=== PATIENT | male | born 1970 | race Caucasian/White ===

== ENCOUNTER 2025-02-07 19:25 | Emergency (ER) | payer OTHER, SELFPAY ==
--- NOTE | ~2025-02-07 | XR_ITS ---
EXAMINATION: XR chest 1V portable 02/07/2025 20:10 INDICATION: Shortness of breath TECHNIQUE:A single portable AP upright frontal image of the chest was obtained. COMPARISON: None available FINDINGS: Left-sided generator with leads. Interstitial opacities in both lungs. The cardiomediastinal silhouette is within normal limits. There are no pleural effusions. There is no pneumothorax suspected. IMPRESSION: 1: Interstitial opacities in both lungs. Differential includes interstitial edema, interstitial pneumonia or chronic interstitial changes. 2. Lungs are hyperinflated. Reviewed, dictated and finalized at location Q. IMPRESSION: 1: Interstitial opacities in both lungs. Differential includes interstitial jessi ma, interstitial pneumonia or chronic interstitial changes. 2. Lungs are hyperinflated.
[2025-02-07 19:20] VITALS: PULSE 127; RESP 24; O2SAT 99
[2025-02-07 19:29] VITALS: BP 141/99; PULSE 127; RESP 23; TEMP 37.2; O2SAT 100
--- NOTE | 2025-02-07 19:29 | ECG_ITS ---
Test Date: 2025-02-07 19:46:48 Measurements Intervals [place] Rate: 124 P: 69 MO: 184 QRS: 36 QRSD: 119 T: 65 QT: 330 QTc: 475 Interpretive Statements SINUS TACHYCARDIA WITH FREQUENT VENTRICULAR PREMATURE COMPLEXES INCOMPLETE RIGHT BUNDLE BRANCH BLOCK [90+ ms QRS DURATION, TERMINAL R IN V1/V2, 40+ ms S IN I/aVL/V4/V5/V6] ANTEROSEPTAL MYOCARDIAL INFARCTION , OF INDETERMINATE AGE [40+ ms Q WAVE IN V1-V4] No previous ECG available for comparison Electronically Signed On 02-08-2025 10:30:24 CDT by Gunnar Martinez M.D.
[2025-02-07 19:30] VITALS: PULSE 127; RESP 24
[2025-02-07] MEDS: IPRATROPIUM BR 0.02% INH SOLN 0.5 MG/2.5 ML VIAL 2 MG INHALATION (19:30)
[2025-02-07] MEDS: ALBUTEROL SULFATE NEB 2.5 MG/3 ML INH 10 MG INHALATION (19:30)
[2025-02-07 19:31] VITALS: PULSE 130
--- NOTE | 2025-02-07 19:37 | ED_ITS ---
HPI - General Adult General Chief complaint: Shortness of Breath/Dyspnea Stated complaint: SOB History of Present Illness HPI narrative: Patient is a 54-year-old male who presents emergency department this evening in severe respiratory distress. Per EMS report, patient was found it a [facility] bathroom sitting on the toilet diaphoretic and in severe respiratory distress. Patient was satting 70% on room air. Patient does have a history of COPD and CHF and states that he is supposed to be on oxygen 4 L only did but has not been using it. Patient is also supposed to be on a CPAP at night but has not been using that either. Denies any recent illness, fevers or chills. Denies any active chest pain. Patient states that he feels significantly better after EMS placed him on a CPAP. EMS states that patient himself also looks significantly better. They did administer Decadron and 2 g of IV Mag Prior to arrival. Related Data Allergies Allergy/AdvReac Type Severity Reaction Status Date / Time No Known Allergies Allergy Verified 02/07/25 19:40 Review of Systems 2 Review of Systems: All systems are reviewed and are negative unless stated otherwise in the HPI. Exam 2 Narrative: General: Alert, awake, afebrile, in severe respiratory distress. HEENT: PERRL, no rhinorrhea, no post nasal drip, oropharynx clear. Neck: Trachea midline, no JVD, no lymphadenopathy. Cardiovascular: Regular rate and rhythm, no murmurs, rubs or gallops, no peripheral edema. Respiratory: Severely diminished bilateral breath sounds with audible wheezing, tachypneic, increase work of breathing was use of accessory muscles of respirations, in severe respiratory distress. Abdomen: Soft, nontender, nondistended, no rebound, no guarding, no peritoneal signs. Musculoskeletal: No joint swelling or deformity, normal muscle tone. Skin: No rashes or petechia, no signs of infection. Psychiatric: Alert and oriented, normal behavior and judgment for situation. Neurological: Alert and oriented to person, place, and time. Follows all commands. No focal deficits, speech is clear and fluent. Course Vital Signs Vital signs: Vital Signs Pulse Rate 127 H 02/07/25 19:20 Respiratory Rate 24 H 02/07/25 19:20 Pulse Oximetry 99 02/07/25 19:20 Oxygen Delivery BiPAP 02/07/25 19:20 Temperature 99 F 02/07/25 19:29 Pulse Rate 130 H 02/07/25 19:31 Respiratory Rate 24 H 02/07/25 19:30 Blood Pressure 141/99 H 02/07/25 19:29 Pulse Oximetry 100 02/07/25 19:29 Oxygen Delivery BiPAP 02/07/25 20:05 Medical Decision Making MDM Narrative Medical decision making narrative: The patient was evaluated by myself in the emergency department. History is obtained from patient who is an independent historian and physical exam was performed. External medical records were reviewed at this time. IV was established and pertinent tests were ordered. Patient was administered long DuoNeb breathing treatment. He did receive steroids and 2 g of Mag per EMS prior to arrival. Patient was also started on IV fluids with 1 L IV fluid bolus with normal saline and antibiotics with Rocephin and azithromycin to cover him for sepsis as he did trigger sepsis secondary to his vital signs at this time. Blood cultures were obtained prior to antibiotic administration. EKG was obtained which revealed a sinus tachycardia at a rate of 124 beats per minute with frequent PVCs, incomplete right bundle-branch block, ST depressions noted in the lateral leads, otherwise no evidence of acute ischemia within the limitation of the heart rate. EKG was independently interpreted by me and is currently pending official cardiology read. Laboratory results obtained revealing a leukocytosis of 19.3, PH 7.289, CO2 44.2, PO2 to 80, bicarb 20.7, lactic acidosis of 4, magnesium of 3, proBNP of 1000. Imaging studies obtained included CXR which was independently interpreted by me revealing [finding], which is pending final radiology interpretation. Differential diagnosis considerations include acute hypoxic respiratory failure secondary to CHF exacerbation/pulmonary edema, COPD, acute viral syndrome, infectious process such as pneumonia. Comorbidities impacting this visit include history of COPD and reported CHF. I have evaluated and discussed social determinants of health with the patient that could potentially impact subsequent diagnosis and treatment plans. On repeat assessment of the patient, reevaluation revealed that the patient is doing well and is in no acute distress. Patient symptoms have improved since he arrived to our emergency department. Patient was informed that given his condition, a.m. recommending inpatient hospitalization for treatment and patient is refusing at this time. He is alert and oriented to person, place, time and situation and sound of my, capable of making his own medical decisions. He understands that he will be leaving against medical advice and is willing to sign AMA form. Critical care time of 75 minutes, exclusive of separately performed procedures, necessary for treating or preventing eminent or life-threatening deterioration of patient's condition of acute hypoxic respiratory failure requiring BIPAP and sepsis, focused on patient care provided personally by me and time spent during initial evaluation, physical examination, ordering and performing treatments and interventions, ordering and reviewing laboratory studies, ordering and reviewing radiographic studies, re-evaluation of the patient's condition, evaluation of the patient's response to treatment, and discussion of patient case with multiple consultants. Vital Signs Vital Signs: Vital Signs Pulse Rate 127 H 02/07/25 19:20 Respiratory Rate 24 H 02/07/25 19:20 Pulse Oximetry 99 02/07/25 19:20 Oxygen Delivery BiPAP 02/07/25 19:20 Temperature 99 F 02/07/25 19:29 Pulse Rate 130 H 02/07/25 19:31 Respiratory Rate 24 H 02/07/25 19:30 Blood Pressure 141/99 H 02/07/25 19:29 Pulse Oximetry 100 02/07/25 19:29 Oxygen Delivery BiPAP 02/07/25 20:05 Lab Data 02/07/25 19:48 02/07/25 19:53 Labs: Lab Results 02/07/25 02/07/25 02/07/25 Range/Units 19:48 19:53 20:12 WBC 19.3 H (4.5-10.0) K/mm3 RBC 4.64 (4.6-6.20) M/mm3 Hgb 13.3 L (14.0-18.0) g/dL Hct 43.1 (42.0-52.0) % MCV 92.9 (80-100) fl MCH 28.7 (26-34) pg MCHC 30.9 L (32-36) g/dl RDW 13.4 (11.5-14.5) % Plt Count 260 (150-375) k/mm3 MPV 10.4 (7.4-10.4) fl Immature Gran % (Auto) 1.7 H (0-0.5) % Neut % (Auto) 83.4 H (45.5-73.1) % Lymph % (Auto) 9.5 L (18.3-44.2) % Woods % (Auto) 4.2 (2.6-8.5) % Eos % (Auto) 0.7 (0-4.4) % Baso % (Auto) 0.5 (0.2-1.2) % Lymph # (Auto) 1.84 (0.9-3.2) K/mm3 Woods # (Auto) 0.8 H (0.1-0.6) K/mm3 Eos # (Auto) 0.1 (0-0.3) K/mm3 Baso # (Auto) 0.1 (0.0-0.1) K/mm3 Abs Immat Gran (auto) 0.32 H (0.00-0.031) K/mm3 Absolute Neuts (auto) 16.1 H (1.3-6.7) K/mm3 Absolute Nucleated RBC 0.000 (0.0-0.012) K/mm3 Nucleated RBC % 0.0 (0.0-0.2) % Methemoglobin 0.1 (0-1.5) %THb Expiratory Pressure 5 CMH2O Inspiratory Pressure 12 CMH2O Sodium 136 L (137-145) mmol/L Potassium 4.3 (3.4-5.0) mmol/L Chloride 98 (98-107) mmol/L Carbon Dioxide 25 (22-30) mmol/L Anion Gap 13 H (4-12) mmol/L BUN 12 (9-20) mg/dL Creatinine 1.32 H (0.7-1.3) mg/dL Estim Creat Clear Calc 71 ml/min Estimated GFR 57 L (59 - ) Glucose 159 H (65-110) mg/dL Lactic Acid 4.0 H (0.7-2.0) mmol/L Calcium 8.9 (8.4-10.2) mg/dL Magnesium 3.0 H (1.6-2.3) mg/dL Total Bilirubin 0.5 (0.2-1.3) mg/dL AST 41 (17-59) U/L ALT 29 (6-50) U/L Alkaline Phosphatase 69 (38-126) U/L NT-Pro-B Natriuret Pep 1000 H (19.9-100) pg/mL Total Protein 8.4 H (6.3-8.2) g/dL Albumin 5.0 (3.5-5.1) g/dL ABG Data ABG results: 02/07/25 20:12 Puncture Site Right radial ABG pH 7.289 L* ABG pCO2 44.2 ABG pO2 280.7 H ABG PO2/FiO2 Ratio 5.61 ABG HCO3 20.7 L ABG O2 Saturation 99.6 ABG O2 Content 20.1 ABG Base Excess -5.7 A-a Gradient 26.1 Oxyhemoglobin 99.3 Carboxyhemoglobin 0.4 Reduced Hemoglobin 0.2 Total Hemoglobin 13.9 O2 Delivery Device Non-invasive vent O2 Liters/Min Not Reportable Vent Rate 12 FiO2 50 Critical Care Time Critical Care Time Critical Care Time: Yes Total Critical Care Time: 75 ( Please refer to [facility] for attestation.) Discharge Plan Discharge Clinical Impression: Acute hypoxic respiratory failure, COPD exacerbation, Sepsis, High anion gap metabolic acidosis Patient Disposition: Left Against Medical Advice Condition: Serious Patient Language: Serbian
[2025-02-07] MEDS: SODIUM CHLORIDE 0.9% IV 1,000 ML 999 ML IV CONT (19:44)
[2025-02-07 19:58] LABS: Hematocrit 43.1 % (42.0-52.0); Hemoglobin 13.3 g/dL (14.0-18.0); Immature Granulocyte Percent A 1.7 % (0-0.5); Lymphocytes Absolute Auto 1.84 K/mm3 (0.9-3.2); Mean Corpuscular HGB Conc 30.9 g/dl (32-36); Mean Corpuscular Hemoglobin 28.7 pg (26-34); Mean Corpuscular Volume 92.9 fl (80-100); Nucleated Red Blood Cells Absolute Auto 0.000 K/mm3 (0.0-0.012); Nucleated Red Blood Cells Perc 0.0 % (0.0-0.2); Platelet Count Result 260 k/mm3 (150-375); Red Blood Count 4.64 M/mm3 (4.6-6.20); White Blood Count 19.3 K/mm3 (4.5-10.0)
[2025-02-07 20:16] LABS: Alanine Aminotransferase 29 U/L (6-50); Albumin Level 5.0 g/dL (3.5-5.1); Alkaline Phosphatase 69 U/L (38-126); Anion Gap 13 mmol/L (4-12); Aspartate Amino Transferase 41 U/L (17-59); Bilirubin,Total 0.5 mg/dL (0.2-1.3); Blood Urea Nitrogen 12 mg/dL (9-20); Calcium 8.9 mg/dL (8.4-10.2); Carbon Dioxide 25 mmol/L (22-30); Chloride 98 mmol/L (98-107); Estimated CRCL calculation 71 ml/min; Estimated Glomerular Filt Rate 57; Glucose 159 mg/dL (65-110); Magnesium 3.0 mg/dL (1.6-2.3); Potassium 4.3 mmol/L (3.4-5.0); Sodium 136 mmol/L (137-145); Total Protein 8.4 g/dL (6.3-8.2)
[2025-02-07 20:21] LABS: NT Pro B Type Natriuretic Pept 1000 pg/mL (19.9-100)
[2025-02-07 20:28] LABS: Alveolar/Arterial O2 Gradient 26.1 mmHg; Carboxyhemoglobin 0.4 % THb (0-2.0); Fractional Inspired Oxygen 50 %; HCO3 ABG 20.7 mEq/l (22.0-26.0); Methemoglobin ABG 0.1 %THb (0-1.5); Oxygen Content ABG 20.1 %vol (16.0-22.0); Oxygen Saturation ABG 99.6 % (95.0-100.0); PCO2 ABG 44.2 mmHg (35.0-45.0); PO2 ABG 280.7 mmHg (80.0-100.0); PO2 FiO2 Ratio Arterial Blood 5.61 %; Reduced Hemoglobin 0.2 %THb (0-5.0)
[2025-02-07 20:30] LABS: Modified Allen's Test Pass; Non-Invasive Vent Rate 12 /MIN; Site Drawn RIGHT RADIAL
[2025-02-07 20:31] LABS: Non-Invasive Expiratory Pressure 5 CMH2O; Non-Invasive Inspiratory Pressure 12 CMH2O
== END 2025-02-07 20:48 | disposition left against medical advice (07) ==
LOC: ANHED 20:19
PROVIDERS: Emergency Provider Emergency Medicine
DX: J96.01 Acute respiratory failure with hypoxia (principal); Z99.81 Dependence on supplemental oxygen; J44.1 Chronic obstructive pulmonary disease with (acute) exacerbation; A41.9 Sepsis, unspecified organism; R65.20 Severe sepsis without septic shock; E87.20 Acidosis, unspecified
CPT/HCPCS: 36415; 36600; 71045; 80053; 82375; 82805; 83050; 83605; 83735; 83880; 85018; 85025; 87040; 93005; 94640; 96360; 99284; J7030